=== PATIENT | female | born 1935 | race Caucasian/White ===

== ENCOUNTER 2016-04-19 06:15 | Observation (INO) | payer OTHER, MEDICARE ==
[~2016-04-19] VITALS: Ht 160 cm; Wt 90.7 kg
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
[2016-04-19 06:40] LABS: ABSOLUTE BASOPHIL COUNT 0 /CUMM (0.0-0.2); ABSOLUTE EOSINOPHIL COUNT 0.2 /CUMM (0.0-0.7); ABSOLUTE LYMPH COUNT 1.3 /CUMM (1.2-3.4); ABSOLUTE MONOCYTE COUNT 0.5 /CUMM (0.10-0.60); BASOPHIL % 0.3 % (0.0-2.0); EOSINOPHIL % 2.3 % (0-5); GRANULOCYTE % 74.9 % (42.2-75.2); HEMATOCRIT 39.5 % (37-47); MEAN CORPUSCULAR HGB CONC 32.3 G/DL (33.0-37.0); MEAN CORPUSCULAR VOLUME 86.5 FL (81.0-99.0); MEAN PLATELET VOLUME 8.3 FL (7.4-10.4); PLATELET COUNT 209 /CUMM (130-400); RBC DISTRIBUTION WIDTH 16.5 % (11.5-14.5); RED BLOOD CELL CT 4.57 /CUMM (4.20-5.40); WHITE BLOOD CELL COUNT 8.1 /CUMM (4.8-10.8)
[2016-04-19] MEDS ORDERED: ELIQUIS5 M1 PO (06:40)
[2016-04-19] MEDS ORDERED: CITALOPRAM HBR20 MG PO (06:40)
[2016-04-19] MEDS ORDERED: LEVOTHYROXINE150 MCG PO (06:40)
[2016-04-19] MEDS ORDERED: VERAPAMIL ER120 M1 PO (06:40)
[2016-04-19] MEDS ORDERED: METHOTREXATE2.5 M2 PO (06:41)
[2016-04-19] MEDS ORDERED: VALSARTAN160 M1 PO (06:41)
[2016-04-19] MEDS ORDERED: FOLIC ACID1 M1 PO (06:41)
[2016-04-19] MEDS ORDERED: PREDNISONE2.5 M1 PO (06:41)
[2016-04-19] MEDS ORDERED: VITAMIN D2000 UNIT PO (06:42)
[2016-04-19] MEDS ORDERED: VITAMIN B122500 MC2 (06:43)
[2016-04-19 06:49] LABS: PT 14.1 SEC (9.4-12.5); PTT 30 SEC (25-37)
--- NOTE | 2016-04-19 08:25 | CT SCAN REPORT ---
EXAMINATION: CT ABDOMEN AND PELVIS WITHOUT CONTRAST CLINICAL INFORMATION: Sudden onset sharp right flank pain. Pain intensity 10/10. COMPARISON: None TECHNIQUE: Multidetector volumetric imaging was performed from the superior aspect of the liver through the pubic symphysis. Sagittal and coronal reformatted images were obtained on the technologist's workstation. DLP: 1231 mGy-cm FINDINGS: Digital order department supervisor: Bilateral total hip replacement. Thoracolumbar instrumentation with a metallic cage and bilateral posterior spinal fixation rods LUNG BASES: There are nonspecific linear and groundglass opacities in the visualized lung bases. Significant artifact from the instrumentation limits assessment of the spinal canal and vertebrae. Probable calcified right lung base granuloma LIVER, GALLBLADDER, AND BILIARY TREE: No suspicious hepatic mass. The central intrahepatic bile ducts are prominent. There are surgical clips in the expected region of the gallbladder. The common duct is dilated (1.7 cm. There is no large calcified duct calculus. PANCREAS: The pancreas is atrophic. There is no definite pancreatic mass. No peripancreatic stranding SPLEEN: Artifact limits assessment. No large mass ADRENAL GLANDS: There is a 1.8 cm mass involving the apex of the left adrenal gland. This has mean Hounsfield units of 7. 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 KIDNEYS AND URETERS: Artifact limits assessment. There are multiple fluid attenuating structures in the central aspect of each kidney. Difficult to distinguish parapelvic cysts from a dilated intrarenal collecting system. There are additional cortical and exophytic renal masses some of which appear to represent cysts but some are higher attenuation than simple fluid. There is a calcification near the left renal pelvis which could be arterial. There is no dilation of the mid or distal right ureter. There is no dilation of the mid or distal left ureter. No convincing ureteral calculus. The region of the distal ureters are obscured by metallic artifact. There is no significant perinephric stranding. BLADDER: The bladder is difficult to evaluate due to metallic artifact. There are calcifications near the bladder base. GASTROINTESTINAL TRACT: There is luminal narrowing and wall thickening with numerous diverticula in the sigmoid. This could be related to diverticulosis. The underlying mucosa is difficult to evaluate. There is no definite CT evidence of acute diverticulitis. No abnormal appendix demonstrated. No significant small bowel dilation. There is a small sliding-type hiatal hernia. There is evidence of metallic suture in the left midabdomen consistent with a small bowel anastomosis. ABDOMINAL WALL: There is focal eventration or small hernia in the lowest portion of the rectus fascia and in the midline. There is laxity of the fascia near the inguinal canal on each side. There is attenuation of the abdominal wall musculature bilaterally. Evidence of midline surgery. LYMPH NODES: There are no enlarged abdominal or pelvic lymph nodes. No significant free intraperitoneal fluid. VASCULAR: There is no abdominal aortic aneurysm. No evidence of retroperitoneal hematoma. PELVIC VISCERA: Limited due to metallic artifact. I suspect the uterus is surgically absent. OSSEOUS STRUCTURES: Metallic artifact around each hip and in the spine. This precludes assessment of spinal canal and vertebrae. Extensive degenerative changes in the visualized portions of the spine. IMPRESSION: There are multiple low attenuating structures in central aspect of each kidney. I suspect multiple parapelvic cysts. This makes assessment for a dilated intrarenal collecting system difficult. There is no mid or distal ureteral dilation. There is no convincing ureteral calculus. The bladder is not well evaluated. Extensive previous surgery including the spine, both hips and small bowel Calcifications in the pelvis near the bladder base are nonspecific Extensive distal colonic diverticula without specific evidence of acute diverticulitis or abscess
--- NOTE | 2016-04-19 12:45 | History & Physical ---
JUANJOSE SINGH,NESSA 04/19/16 1206: General Information and HPI MD Statement: I have seen and personally examined SRINIVASAN PRUITT and documented this H&P. The patient is a 81 year old F who presented with a patient stated chief complaint of right side flank pain[]. Source of Information: patient, old records Exam Limitations: no limitations History of Present Illness: 81 YO F with pmh of Atrial Fibrillation (on Eliquis), HTN, Thyoid cancer, Rheumatoid arthrits, diverticulitis, presents from home via EMS pain of abrupt onset of right-sided flank pain that started this morning. She states her pain was acute in onset, 10/10 right-sided, radiating from her back to her stomach. This was associated with nausea, and 2 bouts of vomiting, denies blood in the vomitus. Also complains of increased frequency, urgency with urination, for some time but is getting worse. She denies fevers, chills or any blood in her urine. She was hospitalized at [facility] June 2015, for atrial fibrillation, that time was found to have Escherichia coli in her urine, it was not treated. Denies history of renal stones in the past. In the ER she was treated with pain medication, and received antibiotics for suspected UTI, now rates the pain as 4/10. Allergies/Medications Allergies: Coded Allergies: Cephalosporins (UNKNOWN 04/19/16) metronidazole (U 04/19/16) Home Med list Apixaban (Eliquis) 5 MG TABLET 1 TAB PO BID BLOOD THINNER (Reported) Cholecalciferol (Vitamin D3) (Vitamin D) 2,000 UNIT CAPSULE 1 CAP PO DAILY VITAMIN SUPPLEMENT (Reported) Citalopram Hydrobromide (Citalopram HBr) 20 MG TABLET 1 TAB PO DAILY ANTIDEPRESSANT (Reported) Cyanocobalamin (Vitamin B-12) (Vitamin B12) 2,500 MCG TAB.CHEW 100 DAILY VITAMIN SUPPLEMENT (Reported) Folic Acid 1 MG TABLET 1 TAB PO DAILY VITAMIN SUPPLEMENT (Reported) Levothyroxine Sodium 150 MCG TABLET 1 TAB PO DAILY THYROID (Reported) Methotrexate 2.5 MG TABLET 4 TAB PO QW (Reported) Prednisone 2.5 MG TABLET 1 TAB PO DAILY SWELLING (Reported) Valsartan 160 MG TABLET 1 TAB PO DAILY HTN (Reported) Verapamil HCl (Verapamil ER) 120 MG TABLET.ER 1 TAB PO DAILY HTN (Reported) Compliance With Home Meds: GOOD Past History Travel History Traveled to [place] past 21 day No Medical History Cardiovascular: AFIB, hypertension Gastrointestinal: diverticulitis Psychiatric: depression Endocrine: hypothyroidism Cancer(s): thyroid cancer Surgical History Surgical History: appendectomy, cholecystectomy Past Family/Social History Psychosocial History Where do you live? Home Who Do You Live With? self Services at Home: None Primary Language: Maltese Smoking Status: Former Smoker ETOH Use: denies use Functional Ability ADLs Independent: dressing, eating, toileting, bathing. Ambulation: cane IADLs Independent: shopping, housework, finances, food prep, telephone, transportation , medication admin. Employment History Employment Retired Profession/Employer Nurse Review of Systems Review of Systems Constitutional: Reports: no symptoms. Cardiovascular: Denies: chest pain, palpitations, peripheral edema. Respiratory: Denies: cough, hemoptysis, short of breath, sputum production. GI: Reports: abdominal pain, nausea, vomiting. Denies: constipation, diarrhea, bloody stool, changes in stool. Genitourinary: Reports: dysuria, frequency, pain. Denies: discharge, hematuria, hesitation. Musculoskeletal: Reports: no symptoms. Skin: Reports: no symptoms. Neurological/Psychological: Reports: no symptoms. Hematologic/Endocrine: Reports: no symptoms. Immunologic/Allergic: Reports: no symptoms. All Other Systems: Reviewed and Negative Exam & Diagnostic Data Last 24 Hrs of Vital Signs/I&O Vital Signs Date Time Temp Pulse Resp B/P Pulse O2 O2 Flow FiO2 Ox Delivery Rate 04/19 1213 114 16 150/90 04/19 1030 97.6 90 20 137/94 93 Room Air 04/19 0652 104 14 131/58 98 Room Air 04/19 0625 96.0 110 18 200/102 96 Room Air 04/19 0620 98 Room Air Room Air Intake & Output 04/19 1600 04/19 0800 04/19 0000 Intake Total 620 Output Total Balance 620 Intake, IV 500 Intake, Oral 120 Patient 200 lb Weight Physical Exam General Appearance Alert, Oriented X3, Cooperative, No Acute Distress Skin No Rashes, No Breakdown HEENT Atraumatic, PERRLA, EOMI, Mucous Membr. moist/pink Neck Supple, No JVD Lymphatic Cervical nl Cardiovascular Normal S1, Normal S2, No Murmurs, irregularly, irregular Lungs Clear to Auscultation, Normal Air Movement Abdomen Normal Bowel Sounds, Soft, No Tenderness Neurological Normal Speech, Strength at 5/5 X4 Ext Extremities No Edema, Normal Pulses Vascular Normal Pulses Last 24 Hrs of Labs/[place]: Laboratory Tests 04/19/16 0928: Urinalysis LIGHT H, Urine Color YEL, Urine Clarity CLDY H, Urine pH 6.0, Ur Specific [place] 1.025, Urine Protein 30 H, Urine Ketones NEG, Urine Nitrite NEG, Urine Bilirubin NEG, Urine Urobilinogen 0.2, Ur Leukocyte Esterase NEG, Ur Microscopic SEDIMENT EXAMINED, Urine RBC 25-50 H, Urine WBC 10-15 H, Ur Epithelial Cells RARE, Urine Bacteria PACKD H, Urine Mucus FEW, Urine Hemoglobin MOD H, Urine Glucose NEG 04/19/16 0630: Anion Gap 8, Estimated GFR > 60, BUN/Creatinine Ratio 32.2 H, Glucose 120 H, Lactic Acid 0.9, Calcium 8.9, Total Bilirubin 0.4, AST 25, ALT 37, Alkaline Phosphatase 86, Troponin I < 0.01, Total Protein 5.9 L, Albumin 3.6, Globulin 2.3, Albumin/Globulin Ratio 1.6, Lipase 22 L, PT 14.1 H, INR 1.35 H, APTT 30, CBC w Diff NO MAN DIFF REQ, RBC 4.57, MCV 86.5, MCH 28.0, RDW 16.5 H, MPV 8.3, Gran % 74.9, Lymphocytes % 16.0 L, Monocytes % 6.5, Eosinophils % 2.3, Basophils % 0.3, Absolute Granulocytes 6.0, Absolute Lymphocytes 1.3, Absolute Monocytes 0.5, Absolute Eosinophils 0.2, Absolute Basophils 0, PUBS MCHC 32.3 L Microbiology 04/19 1200 URINE ROUT: Urine Culture - ORD Diagnostic Data EKG Results Atrial Fibrillation, 117, PVC QTc 486 Other Results There are multiple low attenuating structures in central aspect of each kidney. I suspect multiple parapelvic cysts. This makes assessment for a dilated intrarenal collecting system difficult. There is no mid or distal ureteral dilation. There is no convincing ureteral calculus. The bladder is not well evaluated. Extensive previous surgery including the spine, both hips and small bowel Calcifications in the pelvis near the bladder base are nonspecific Extensive distal colonic diverticula without specific evidence of acute diverticulitis or abscess Assessment/Plan Assessment: 81 YO F with pmh of Atrial Fibrillation (on Eliquis), HTN, Thyoid cancer, Rheumatoid arthrits, diverticulitis, presents from home via EMS pain of abrupt onset of right-sided flank pain that started this morning. She states her pain was acute in onset, 10/10 right-sided, radiating from her back to her stomach this morning, with increased urgency and frequency of urination. Denies fevers, chills, hematuria. She has remained afebrile, with normal wbc count. She is taking low dose steroids EOD for RA. While in ER her pain has responded to pain medication, and she recieved antibiotic for suspected UTI. Imaging has not identified a renal stone. We will admit to [facility] Floor for suspected UTI vs renal stone. UTI Negative LE, nitrites Recieved Nitrofurantoin in ER, will hold off on further abx and monitor will get urine culture IVF @ 75cc/hr Renal Stone? We will continue to control her pain with tylenol, percocet Will start hydration with IVF and monitor symptoms Imaging negative for stone, may be difficult to visualize due to renal cyst? If pain persists may need further imaging Atrial Fibrillation HR 110's has not taken home medications this morning will start home medications and monitor continue verapamil continue anticoagulation eliquis HTN BP elevated on admission, likely due to pain BP better controlled, start home medication and will monitor Thyroid cancer s/p thryoidectomy, Hypothryoidism continue home dose of levothyroxine Rheumatoid Arthritis took dose of methotrexate on 04/17/16 next dose scheduled for monday04/24/16 continue folic acid supplementation takes prednisone 2.5mg EOD, took dose yesterday, start prednisone tommorrow DVT ppx eliquis DNR/I As Ranked By This Provider Problem List: 1. UTI (urinary tract infection) Qualifiers Urinary tract infection type: site unspecified Hematuria presence: with hematuria Qualified Codes: N39.0 - Urinary tract infection, site not specified; R31.9 - Hematuria, unspecified 2. Flank pain 3. Atrial fibrillation 4. HTN (hypertension) 5. Rheumatoid arthritis Core Measures/Miscellaneous Acute Coronary Syndrome ACS Diagnosis: No Cerebrovascular Accident CVA/TIA Diagnosis: No Congestive Heart Failure CHF Diagnosis: No Venous Thromboembolism VTE Risk Factors: Age > 40 No [facility] VTE prophylaxis d/t: No contraindications No VTE Pharm Prophylaxis d/t: No contraindications VTE Diagnosis: No VTE Type: NONE VTE Confirmed by (Test): NONE Severe Sepsis Severe Sepsis Present: No Septic Shock Septic Shock Present: No Miscellaneous Documentation Attending Case Discussed With: BRITTANEY ALVAREZ M.D Primary Care Physician: PATIENT HAS NO PRIMARY CARE DR Patient sees these Specialists cardiology rheumatology Level of Patient Care: General Medicine BRITTANEY ALVAREZ MD 04/19/16 1540: Attending MD Review Statement Attending Statement Attending MD Statement: examined this patient, discuss w/resident/PA/SALT GRINDER, agreed w/resident/PA/SALT GRINDER, reviewed EMR data (avail), discussed with nursing, amended to note Attending Assessment/Plan: Patient is an 81-year-old female with history of atrial fibrillation on Eliquis, thyroid cancer, rheumatoid arthritis, history of diverticulitis, chronic pain syndrome managed with Motrin. She presented to the emergency room with sudden onset of right flank pain radiating to the right lower flank. Pain was 10 over 10 associated with nausea and 2 bouts of vomiting. She called EMS and was brought to the emergency room for evaluation. She reports that at baseline she has urinary frequency and urgency however this has been getting worse over the past few weeks. Denies fever or chills. Denies sick contacts. Images serum she was found initially significantly hypertensive complain of pain. She received 4 mg of morphine as well as 2 mg of Dilaudid intravenously abdominal CT scan was done which showed no evidence of an acute intra-abdominal process. She continued to complain of abdominal discomfort as referred to the medical service for further pain control. She reports a history of chronic back pain secondary to spinal stenosis. She gives a history of left back pain radiating around to the left leg which was stated to be secondary to her spinal stenosis. In the past she was scheduled to undergo spinal injection however once she was started on anticoagulation therapy about 2 years ago this plan was put off. She has been experiencing back pain on and off since then and medicates herself with ibuprofen. On examination she does not appear to be in any acute distress. Her abdomen is nondistended, soft, nontender with normal bowel sounds. No palpable organomegaly. Her urine shows some protein But negative leukoesterase or nitrites. Laboratory data shows BUN/creatinine ratio of 29-0.9, she has no leukocytosis. Problems: 1. Right-sided abdominal pains; starting from the flank radiating anteriorly to the right lower quadrant. 2. Atrial fibrillation on anticoagulation 3. Hypertension 4. Rheumatoid arthritis Plan: -Observe patient on the general medical service. -Etiology of her pain is not clear at present. May be related to her ongoing spinal stenosis. -Attempt pain control with oral regimen. Begin patient on Percocet as needed for pain control. May utilize IV Dilaudid for severe breakthrough pain. -Hydrate gently overnight. -Continue her verapamil for rate and blood pressure control. Heart rate and blood pressure has improved since her initial values. -If pain control is improved tomorrow, she may be discharged home with outpatient follow-up. If persistent, will consider further diagnostic imaging such as MRI. -She shows a comminuted evidence of urinary tract infection for now. She admits that her urinary symptoms are chronic although worsened recently. Hold off on antibiotic therapy until culture reports return. She received nitrofurantoin in the emergency room.
[2016-04-19 13:00] VITALS: BP 150/90
[2016-04-19 23:10] VITALS: BP 123/73
[2016-04-20 07:15] VITALS: BP 148/92
--- NOTE | 2016-04-20 07:42 | PN- Housestaff ---
EZ SINGH,GARRETT 04/20/16 0741: Subjective Follow-up For: rt. flank pain ?uti Complaints: c/o rt. flank pain and groin pain Subjective: Patient is comfortably lying in bed. She feels her flank pain has improvced from 10/10 to 5/10 with percocet. Her pain radiates from flank to rt. buttock and groin. Denies dysuria, fever, chills, n/v/ abd. pain cp, sob.Her apptite has dereased. Review of Systems Constitutional: Denies: chills, fever, weakness. EENTM: Denies: visual changes. Cardiovascular: Denies: chest pain, palpitations. Respiratory: Denies: cough, short of breath. Gastrointestinal: Denies: abdominal pain, nausea, vomiting. Genitourinary: Denies: dysuria. Musculoskeletal: Reports: back pain. Skin: Denies: rash. Neurological/Psychological: Denies: ataxia, confusion. Objective Last 24 Hrs of Vital Signs/I&O Vital Signs Date Time Temp Pulse Resp B/P Pulse O2 O2 Flow FiO2 Ox Delivery Rate 04/20 0715 98.4 104 18 148/92 91 Room Air 04/19 2310 98.9 89 20 123/73 97 Room Air 04/19 1300 97.9 93 16 150/90 93 Room Air 04/19 1247 97.2 109 18 148/90 97 Room Air 04/19 1228 122 150/90 04/19 1228 122 150/90 04/19 1213 114 16 150/90 04/19 1030 97.6 90 20 137/94 93 Room Air Intake & Output 04/20 1600 04/20 0800 04/20 0000 Intake Total 1400 Output Total 400 Balance 1000 Intake, IV 900 Intake, Oral 500 Output, Urine 400 Physical Exam General Appearance: Alert, Oriented X3, Cooperative, No Acute Distress Skin: No Rashes HEENT: Atraumatic, PERRLA, EOMI, Mucous Membr. moist/pink Neck: Supple, No JVD Lymphatic: Cervical nl Cardiovascular: Regular Rate, Normal S1, Normal S2, No Murmurs Lungs: Clear to Auscultation, Normal Air Movement Abdomen: Normal Bowel Sounds, Soft, No Tenderness Neurological: Normal Speech, Normal Tone Extremities: No Edema Current Medications: Current Medications Sig/Tree Start time Last Medication Dose Route Stop Time Status Admin Acetaminophen 650 MG Q6P PRN 04/19 1200 AC PO Apixaban 5 MG BID 04/19 1139 AC 04/19 PO 2234 Cholecalciferol 400 IU DAILY 04/19 1140 AC 04/19 PO 1450 Citalopram 20 MG DAILY 04/19 1139 AC 04/19 Hydrobromide PO 1450 Cyanocobalamin 250 MCG DAILY 04/19 1145 AC 04/19 PO 1450 Enoxaparin Sodium 40 MG DAILY 04/20 1000 CAN SC Folic Acid 1 MG DAILY 04/19 1140 AC 04/19 PO 1450 Hydromorphone HCl 0.5 MG Q4P PRN 04/19 1200 DC 04/19 IV 1332 Ketorolac 15 MG Q6P PRN 04/19 1200 DC Tromethamine IV Levothyroxine Sodium 0.15 MG DAILY AC 04/19 1138 AC 04/20 PO 0637 Losartan Potassium 50 MG DAILY 04/19 1145 AC 04/19 PO 1228 Nitrofurantoin 100 MG BID 04/19 2200 CAN PO Nitrofurantoin 100 MG ONCE ONE 04/19 1000 DC 04/19 PO 04/19 1001 1025 Oxycodone/ 1 TAB Q6P PRN 04/19 1415 AC 04/20 Acetaminophen PO 0302 Prednisone 2.5 MG Q48 04/21 1000 AC PO Sodium Chloride 1,000 ML Q13H 04/19 1200 DC 04/19 IV 04/20 0059 1355 Sodium Chloride 500 ML BOLUS ONE 04/19 1030 DC 04/19 IV 04/19 1129 1037 Verapamil HCl 120 MG DAILY 04/19 1138 AC 04/19 PO 1228 Last 24 Hrs of Lab/[place] Results Last 24 Hrs of Labs/Mics: Laboratory Tests 04/19/16 0928: Urinalysis LIGHT H, Urine Color YEL, Urine Clarity CLDY H, Urine pH 6.0, Ur Specific [place] 1.025, Urine Protein 30 H, Urine Ketones NEG, Urine Nitrite NEG, Urine Bilirubin NEG, Urine Urobilinogen 0.2, Ur Leukocyte Esterase NEG, Ur Microscopic SEDIMENT EXAMINED, Urine RBC 25-50 H, Urine WBC 10-15 H, Ur Epithelial Cells RARE, Urine Bacteria PACKD H, Urine Mucus FEW, Urine Hemoglobin MOD H, Urine Glucose NEG Microbiology 04/20 0905 URINE ROUT: Urine Culture - COLB 04/19 1200 URINE ROUT: Urine Culture - CAN Cancelled: Cancelled via OE: Per MD Decision Assessment/Plan Assessment: 81 YO F with pmh of Atrial Fibrillation (on Eliquis), HTN, Thyoid cancer, Rheumatoid arthrits, diverticulitis, presents from home via EMS pain of abrupt onset of right-sided flank pain radiating from her back to right buttock and right groin area without any symptoms of urinary frequency/dysuria/burning/fever . Patient was admitted with suspected UTI but monitored of antibiotic due to lack of any signs of urinary infection. 1. Right flank/back pain - CT noted negative for any kidney stone - Most likely back pain is related with her previous arthritic changes in back - Patient's UA noted Dirty but no signs of infection including fever, urinary frequency, dysuria noted - Repeat UA and urine culture pending to rule out any urinary infection - Patient remains afebrile - Pain significantly improved with oral Percocet 2. History of atrial fibrillation -Continue Eliquis for anticoagulation - Rate controlled without any AV concha cyndi - Noted slightly tachy, likely secondary to pain 3. Rheumatoid arthritis - Continue prednisone 2.5 mg every other day - Methotrexate on weekly basis 4. Hypertension -Blood pressure better controlled with home dose ARB and verapamil 5. Depression Continue citalopram 6. Hypothyroidism Continue Synthroid 7. DVT prophylaxis On Eliquis Problem List: 1. Rheumatoid arthritis 2. HTN (hypertension) 3. Atrial fibrillation 4. Flank pain Pain Ratin Pain Location: back Pain Goal: Pain 4 or less Pain Plan: percocet Tomorrow's Labs & Rationales: none DVT/Prophylaxis: pharmacological ANTONIO SINGH,BRITTANEY 04/20/16 1317: Attending MD Review Statement Attending Statement Attending MD Statement: examined this patient, discuss w/resident/PA/TREE DEADENER, agreed w/resident/PA/TREE DEADENER, reviewed EMR data (avail), discussed with nursing, discussed with case mgmt, amended to note Attending Assessment/Plan: 6 patient seen and examined. Resting comfortably and not in acute distress. She reports that her pain has improved significantly with the addition of Percocet to her regimen yesterday. She continues to experience pain but less so today. She denies any dysuria. She has been afebrile hemodynamically stable. Unfortunately urine cultures, sent yesterday. We'll send urine cultures while monitoring the patient off antibiotic therapy. If cultures are negative and pain remains controlled on Percocet she will be discharged home tomorrow. Her observation status will be extended into tomorrow morning.
[2016-04-20] MEDS ORDERED: PERCOCET 5-3251 EACH PO (10:02)
--- NOTE | 2016-04-20 10:12 | Patient Discharge Instructions ---
Discharge Instructions General Discharge Information You were seen/treated for: rt. flank/back pain asymptomatic bacteriuria Watch for these problems: fever, dysuria, urinary burning/pain, nausea/vomiting Special Instructions: Please follow up with PCP within a week of discharge. Please follow up with urologist for worsening urinary incontinence within a week of discharge. Diet Recommended Diet: Heart Healthy Activity Additional ACTIVITY Info: as tolerated Acute Coronary Syndrome Inclusion Criteria At DC or during hospital stay patient has or had the following: ACS DIAGNOSIS No Discharge Core Measures Meds if any: Prescribed or Continued at Discharge Meds if any: NOT Prescribed or Continued at Discharge Congestive Heart Failure Inclusion Criteria At DC or during hospital stay patient has or had the following: CHF DIAGNOSIS No Discharge Core Measures Meds if any: Prescribed or Continued at Discharge Meds if any: NOT Prescribed or Continued at Discharge Cerebrovascular accident Inclusion Criteria At DC or during hospital stay patient has or had the following: CVA/TIA Diagnosis No Discharge Core Measures Meds if any: Prescribed or Continued at Discharge Meds if any: NOT Prescribed or Continued at Discharge Venous thromboembolism Inclusion Criteria VTE Diagnosis No VTE Type NONE VTE Confirmed by (Test) NONE Discharge Core Measures - Per Current guidelines, there needs to be overlap - treatment for the first 5 days of Warfarin therapy. - If discharged on Warfarin prior to 5 days of - overlap therapy, the patient will need to be - assessed for post discharge needs including - *Post discharge parental anticoagulation - *Warfarin and/or parental anticoagulation education - *Follow up date to check INR post discharge At least 5 days overlap therapy as Inpatient No Meds if any: Prescribed or Continued at Discharge Note: Overlap Therapy is Warfarin and Anticoagulant Meds if any: NOT Prescribed or Continued at Discharge
[2016-04-20 14:03] VITALS: BP 118/80
[2016-04-20 22:35] VITALS: BP 116/82
[2016-04-21 06:58] VITALS: BP 159/100
--- NOTE | 2016-04-21 07:53 | PN- Housestaff ---
EZ SINGH,GARRETT 04/21/16 0752: Subjective Follow-up For: Right flank pain Asymptomatic bacteriuria Complaints: complains of right flank pain which has improved since admission, abdominal bloating Subjective: Patient is comfortably lying in bed noted slightly anxious due to her right flank pain. Patient feels her pain has improved with Percocet but still have pain on movement. She also complains of abdominal bloating and generalized abdominal pain. Her last bowel movement was 2 days ago. She denies any chest pain, shortness of breath, fever, chills. She reports worsening urinary incontinence for past couple days. Review of Systems Constitutional: Reports: weakness. Denies: chills, fever. EENTM: Denies: visual changes. Cardiovascular: Denies: chest pain, orthopena, palpitations. Respiratory: Denies: cough, short of breath. Gastrointestinal: Reports: abdominal pain, bloating, constipation. Denies: nausea, vomiting. Genitourinary: Reports: frequency, urgency. Denies: dysuria. Musculoskeletal: Reports: back pain. Skin: Denies: rash. Neurological/Psychological: Denies: confusion. Objective Last 24 Hrs of Vital Signs/I&O Vital Signs Date Time Temp Pulse Resp B/P Pulse O2 O2 Flow FiO2 Ox Delivery Rate 04/21 0658 98.7 95 19 159/100 95 Room Air 04/21 0650 170/100 04/20 2235 98.7 92 20 116/82 95 Room Air 04/20 1403 98.6 103 20 118/80 96 Room Air Intake & Output 04/21 1600 04/21 0800 04/21 0000 Intake Total 240 120 Output Total Balance 240 120 Intake, Oral 240 120 Physical Exam General Appearance: Alert, Oriented X3, Cooperative, No Acute Distress Skin: No Rashes HEENT: Atraumatic, PERRLA, EOMI, Mucous Membr. moist/pink Neck: Supple, No JVD Cardiovascular: Normal S1, Normal S2, No Murmurs Lungs: Clear to Auscultation, Normal Air Movement Abdomen: Normal Bowel Sounds, Soft, mild generalized abdominal tenderness Neurological: Normal Speech, Normal Tone, Sensation Intact Extremities: No Edema Vascular: Pulses Symmetrical Current Medications: Current Medications Sig/Tree Start time Last Medication Dose Route Stop Time Status Admin Acetaminophen 650 MG Q6P PRN 04/19 1200 AC PO Apixaban 5 MG BID 04/19 1139 AC 04/20 PO 2151 Cholecalciferol 400 IU DAILY 04/19 1140 AC 04/20 PO 0932 Citalopram 20 MG DAILY 04/19 1139 AC 04/20 Hydrobromide PO 0932 Cyanocobalamin 250 MCG DAILY 04/19 1145 AC 04/20 PO 0932 Folic Acid 1 MG DAILY 04/19 1140 AC 04/20 PO 0932 Levothyroxine Sodium 0.15 MG DAILY AC 04/19 1138 AC 04/21 PO 0546 Losartan Potassium 50 MG DAILY 04/19 1145 AC 04/21 PO 0650 Oxycodone/ 1 TAB Q6P PRN 04/19 1415 AC 04/20 Acetaminophen PO 2152 Patient Medication 1 ED .STK-MED ONE 04/20 1350 DC Teaching ED 04/20 1351 Polyethylene Glycol 17 GM DAILY 04/21 1000 AC PO Prednisone 2.5 MG Q48 04/21 1000 AC PO Senna/Docusate Sodium 1 TAB BID PRN 04/21 0915 AC PO Verapamil HCl 120 MG DAILY 04/19 1138 AC 04/20 PO 0932 Last 24 Hrs of Lab/[place] Results Last 24 Hrs of Labs/Mics: Microbiology 04/20 1029 URINE ROUT: Urine Culture - RECD Assessment/Plan Assessment: 81 YO F with pmh of Atrial Fibrillation (on Eliquis), HTN, Thyoid cancer, Rheumatoid arthrits, diverticulitis, presents from home via EMS pain of abrupt onset of right-sided flank pain radiating from her back to right buttock and right groin area without any symptoms of urinary frequency/dysuria/burning/fever . Patient was admitted with suspected UTI but monitored of antibiotic due to lack of any signs of urinary infection. 1. Right flank/back pain likely musculoskeletal in orgin. Asymptomatic bacteriuria - CT noted negative for any kidney stone, hepatic or biliary obstruction or evidence of diverticulitis - Most likely back pain is related with her previous arthritic changes in back or it could be related with upper UTI - Patient's second set of UA noted Dirty which is positive for nitrates and leukocyte Estrace but noted large epithelial cells suggestive of poor sample. Patient complains of worsening urinary incontinence which is new. Urine culture have no growth after discarge. No significant evidence of UTI, likely asymptomatic bacteriuria. - Patient remains afebrile - Pain significantly improved with oral Percocet - CTPMP reviewed for past 3 years and no concerning inappropriate behavior of drug seeking observed. Patient will be discharge on percocet 5/325 mg 1 tab every 6hrs as needed for 5 days. patient advised to see PCP in a week of discharge. All alarming symptoms discussed in detail including fever, chills, fatigue, urinary burning severe flank pain and any of these symptoms develop patient asked to come to ER or see PCP. 2. History of atrial fibrillation -Continue Eliquis for anticoagulation - Rate controlled better controlled today 3. Rheumatoid arthritis - Continue prednisone 2.5 mg every other day - Methotrexate on weekly basis 4. Hypertension -Blood pressure noted elevated likely secondary to pain - Continue with home dose ARB and verapamil 5. Depression Continue citalopram 6. Hypothyroidism Continue Synthroid 7. DVT prophylaxis On Eliquis Problem List: 1. Flank pain 2. Atrial fibrillation 3. HTN (hypertension) 4. Rheumatoid arthritis Pain Ratin Pain Location: Right flank and generalized abdomen Pain Goal: Pain 4 or less Pain Plan: Percocet Tomorrow's Labs & Rationales: CBCT DVT/Prophylaxis: pharmacological BRITTANEY ALVAREZ MD 04/21/16 1104: Attending MD Review Statement Attending Statement Attending MD Statement: examined this patient, discuss w/resident/PA/JEWELRY MECHANIC, agreed w/resident/PA/JEWELRY MECHANIC, reviewed EMR data (avail), discussed with nursing, discussed with case mgmt, amended to note Attending Assessment/Plan: Patient seen and examined. Resting comfortably not in acute distress. She reports her pain is controlled with the use of Percocet. She is able to ambulate around with her walker. She denies any dysuria. She however is concerned about her ongoing urinary incontinence. She reports that this history has been chronic since her hysterectomy however symptoms have gotten worse of recent. She follows with a urologist in [place] was prescribed her medications in the past. She had to discontinue the medications due to the side effects. Currently urine cultures are negative. Symptoms do not appear to be secondary to an infectious process. His heart has been be related to her pelvic surgery. Recommendations: -Patient medically stable to be discharged today. -She is to continue with Percocet for pain control at home. She has been advised to follow-up with her orthopedic service for further management of her degenerative spine disease. -I have also advised to follow-up with the urologist as an outpatient for the management of worsening urinary incontinence.
[2016-04-21] MEDS ORDERED: MIRALAX119 GM PO (10:01)
[2016-04-21] MEDS ORDERED: SENNA PLUS TAB1 EACH PO (10:01)
[2016-04-21 14:18] VITALS: BP 130/72
== END 2016-04-21 19:12 ==
LOC: ENRESERVTM → ENRESERVDT → ERH 06:15 → 2NB 10:15 → ENPENDDIS 10:15 → ERHI 10:15 → 2NB 12:57
PROVIDERS: Emergency Medicine; ADMIT Internal Medicine
DX: R10.9 Unspecified abdominal pain (principal); I48.91 Unspecified atrial fibrillation; Z79.01 Long term (current) use of anticoagulants; M06.9 Rheumatoid arthritis, unspecified; I10 Essential (primary) hypertension; F32.9 Major depressive disorder, single episode, unspecified; E03.9 Hypothyroidism, unspecified; Z85.850 Personal history of malignant neoplasm of thyroid; R82.71 Bacteriuria
CPT/HCPCS: 6040; 74176; 81001; 87086; 93005; 93010; 96361; 96374; 96375; 96376; G0378; J3490; J7040